=== PATIENT | female | born 2000 | race Asian ===

== ENCOUNTER 2023-08-11 21:42 | Emergency (ER) | payer OTHER ==
[2023-08-12] MEDS ORDERED: Lidocaine 2% Viscous Solution 10 ML, Aluminum & Magnesium Hydroxide 30 ML SSW SCH (01:15)
== END 2023-08-12 02:50 | disposition home or self-care (01) ==
LOC: CSHERS 21:42
DX: K29.70 Gastritis, unspecified, without bleeding (principal); R11.2 Nausea with vomiting, unspecified
CPT/HCPCS: 99283